=== PATIENT | male | born 1975 | race American Indian/Alaskan Native ===

== ENCOUNTER 2021-11-09 21:49 | Emergency (ER) | payer SELFPAY ==
--- NOTE | 2021-11-10 05:24 | XRay Report ---
CHEST 2 VIEWS INDICATION / CLINICAL INFORMATION: cough fever. COMPARISON: None available. FINDINGS: SUPPORT DEVICES: None. HEART / MEDIASTINUM: No significant abnormality. LUNGS / PLEURA: No significant pulmonary or pleural abnormality. No pneumothorax. ADDITIONAL FINDINGS: No significant additional findings. IMPRESSION: 1. No acute findings. Signer Name: Bob Cifuentes DO Signed: 11/10/2021 5:20 AM Workstation Name: [id number]
--- NOTE | 2021-11-10 07:54 | Emergency Department Report ---
Pediatric URI - HPI Chief Complaint: Upper Respiratory Infection Stated Complaint: COVID SYMPTOMS Symptoms: Yes Cough, Yes Able to Tolerate Fluids, Yes Good Urine Output, No Rhinorrhea, No Sore Throat, No Ear Pain, No Shortness of Breath, No Sick Contacts, No Listless Behavior Other History: This is a pleasant 46-year-old male presents emergency department chief complaint of fever, cough, congestion, chills, body aches and malaise over the past few days. He is unsure of any sick contacts. ED Review of Systems ROS: Stated complaint: COVID SYMPTOMS Other details as noted in HPI Comment: All other systems reviewed and negative Constitutional: chills, fever, malaise Eyes: denies: eye pain, eye discharge, vision change ENT: congestion. denies: ear pain, throat pain Respiratory: cough. denies: shortness of breath, wheezing Cardiovascular: denies: chest pain, palpitations Endocrine: no symptoms reported Gastrointestinal: denies: abdominal pain, nausea, diarrhea Genitourinary: denies: urgency, dysuria Musculoskeletal: as per HPI, myalgia. denies: back pain, joint swelling, arthralgia Skin: denies: rash, lesions Neurological: denies: headache, weakness, paresthesias Psychiatric: denies: anxiety, depression Hematological/Lymphatic: denies: easy bleeding, easy bruising Pediatric Past Medical History - -related Complications -related complications?: None - Childhood Illnesses Childhood Disease?: None - Chronic Health Problems Hx Seizures: Yes ED Peds URI Exam - Exam General: Vital signs noted. No distress. Alert and acting appropriately. HEENT: Yes Moist Mucous Membranes, No Pharyngeal Erythema, No Pharyngeal Exudates, No Rhinorrhea, No Conjuctival Injection, No Frontal Tenderness, No Maxillary Tenderness Ear: Neither TM Bulge, Neither TM Erythema, Neither EAC Pain, Neither EAC Discharge, Neither Cerumen Impaction Neck: No Adenopathy, No Supple Lungs: No Good Air Exchange, No Wheezes, No Ronchi, No Stridor, No Cough, No Labored Respirations, No Retractions, No Use of Accessory Muscles, No Other Abnormal Lung Sounds Heart: Yes Regular, No Murmur Abdomen: Yes Normal Bowel Sounds, No Tenderness, No Peritoneal Signs Skin: No Rash, No Eczema Neurologic: Alert and oriented, no deficits. Musculoskeletal: Unremarkable. Negative Homans' sign bilaterally, no posterior calf tenderness. ED Course Vital Signs 11/09/21 23:22 Temperature 103.0 F H Pulse Rate 85 Respiratory 18 Rate Blood Pressure 146/80 O2 Sat by Pulse 97 Oximetry ED Medical Decision Making - Radiology Data Radiology results: report reviewed, image reviewed Ordering Physician: MACIEJ KEYES NP Date of Service: 11/10/21 Procedure(s): XR chest routine 2V Accession Number(s): [id number] cc: MACIEJ KEYES NP Fluoro Time In Minutes: CHEST 2 VIEWS INDICATION / CLINICAL INFORMATION: cough fever. COMPARISON: None available. FINDINGS: SUPPORT DEVICES: None. HEART / MEDIASTINUM: No significant abnormality. LUNGS / PLEURA: No significant pulmonary or pleural abnormality. No pneumothorax. ADDITIONAL FINDINGS: No significant additional findings. IMPRESSION: 1. No acute findings. Signer Name: Bob Cifuentes DO Signed: 11/10/2021 5:20 AM Workstation Name: [id number] Transcribed By: MONIE Dictated By: BOB CIFUENTES DO Electronically Authenticated By: BOB CIFUENTES DO Signed Date/Time: 11/10/21 0520 - Medical Decision Making Patient well-appearing, nontoxic in no acute distress. Suspect viral syndrome likely secondary to COVID-19. Recommended supportive treatment we will send the patient home with a work note for the recommended days by the CDC. Recommend social distancing wearing mask and frequent handwashing to avoid any possible exposure. Recommend Tylenol Motrin for fever and rest and increase hydration. Patient was agreeable this plan all of his questions were answered. He is instructed to return to the ER immediately if he develops any changing or worsening symptoms. - Differential Diagnosis COVID-19, influenza, pneumonia Critical care attestation.: If time is entered above; I have spent that time in minutes in the direct care of this critically ill patient, excluding procedure time. ED Disposition Clinical Impression: Acute viral syndrome, Suspected COVID-19 virus infection Disposition: HOME / SELF CARE / HOMELESS Is pt being admited?: No Condition: Stable Instructions: Viral Respiratory Infection, Kjas-Hk-Cvto Prescriptions: Ibuprofen [Motrin 800 MG tab] 800 mg PO Q8HR #30 tablet Benzonatate [Tessalon Perles] 100 mg PO Q8HR #30 capsule Referrals: PRIMARY CARE, [Primary Care Provider] - 3-5 Days [facility] [Provider Group] - 3-5 Days Time of Disposition: 07:53
[2021-11-10 08:31] VITALS: BP 128/77
== END 2021-11-10 08:31 | disposition home or self-care (01) ==
LOC: ED 21:49
DX: B34.9 Viral infection, unspecified (principal); Z20.822 Contact with and (suspected) exposure to COVID-19
CPT/HCPCS: 71046; 99283